=== PATIENT | male | born 1940 | race Caucasian/White ===

== ENCOUNTER → 2023-12-31 12:00 | Outpatient (REF) | payer OTHER, SELFPAY ==
[2023-12-31 08:46] LABS: Potassium 4.9 mmol/L (3.5-5.1)
== END ==
LOC: RESEARCH 12:00
PROVIDERS: REFERRING PHYSICIAN Internal Medicine Cardiovascular Disease
DX: I50.20 Unspecified systolic (congestive) heart failure (principal)
CPT/HCPCS: 36415; 82565; 84132

== ENCOUNTER 2024-07-28 09:52 | Inpatient (IN) | payer MEDICARE, OTHER, SELFPAY ==
[2024-07-26 19:00] VITALS: BP 112/69
[2024-07-26 19:02] VITALS: BP 112/69
--- NOTE | 2024-07-26 19:07 | ED.GENMED ---
History of Present Illness
General
Chief Complaint: Dizziness
Source: patient
Exam Limitations: none
Time Seen by Provider: 07/26/24 18:55
History of Present Illness
History of Present Illness:
This is a 84 year old male that comes in with c/o dizziness. States that this started at 4am today and it awoke him from sleep. States that he was dizzy all day and the room was spinning. States that he did fall this morning but he was dizzy first.
States that he did not hit his head or have any LOC. States that he went to see the PCP and was sent in to the ER for further evaluation. States that he is nauseated and had diarrhea this morning. Denies any fever, chills, chest pain, SOB, abd pain,
vomiting, headache, urinary burning.
Past History
Past History
ED Past Medical History: Arrthythmia (Atrial fib), GERD, HTN, Hypercholesterolemia, Psychiatric (Depression) and Other (Hiatal hernia. esophageal motility issues. Vertigo)
ED Past Surgical History: Cardiac (Ablation, Pacemaker) and Other (Cataracts, )
Social History
Tobacco: Non-smoker
Alcohol: None
Drug: None
Personal:
Living: with family
Employment: Retired
Family History
Family History: Hypertension
Review of Systems
Review of Systems
All Other Systems: ROS reviewed and negative except as documented in HPI and ROS
Constitutional: Reports no symptoms; Denies fever or chills
EENT: Reports no symptoms
Respiratory: Reports no symptoms; Denies cough or trouble breathing
Cardiac: Reports no symptoms; Denies chest pain
ABD/GI: Reports nausea and diarrhea; Denies abdominal pain or vomiting
: Reports no symptoms; Denies dysuria, frequency or urgency
Musculoskeletal: Reports no symptoms
Skin: Reports no symptoms
Neurological: Reports dizzy; Denies headache
Psychiatric: Reports no symptoms
Phy Exam
General Physical Exam
General Presentation: mild distress
General age: appears stated age
General Skin: warm and dry
General Habitus: elderly
General Mental: alert
General Hydration: dry mucous membranes
ENT Exam
ENT Exam: TM's normal, pharynx normal and neck supple
Eye Exam
Eye Exam: other (Patient keeping his eyes closed do to dizziness. )
Cardiovascular Exam
Cardiovascular Exam: no edema, normal peripheral pulses and pacemaker
Pulmonary Exam
Pulmonary Exam: lungs clear, no respiratory distress, no rales, chest non tender, no crackles, no rhonchi, no wheezing and no cough
Gastrointestinal Exam
Gastrointestinal Exam: normal bowel sounds, non tender, soft, no organomegaly, no pulsatile mass and non distended
Musculoskeletal Exam
Musculoskeletal Exam: full ROM and no edema
Skin Exam
Skin Exam: normal color, warm/dry, no rash and no petechia
Psychiatric Exam
Psychiatric Exam: normal mood/affect
Course
Orders/Labs/Results
Orders:
Orders
07/26/24 18:58
Electrocardiogram (*1) Urgent
Reason for Study: Vertigo / Dizzy
EKG- Treatment ONCE
07/26/24 19:05
CMP [Comprehensive Metabolic Panel] Urgent
Complete Blood Count/With Diff Urgent
Troponin I Urgent
07/26/24 19:06
CT Head W/o Iv Contrast Urgent
Comment:
Reason For Exam: dIZZINESS
0.9% Sodium Chloride 1000 ml [Nss] 1,000 ml IV BOLUS
Meclizine [Antivert] 50 mg PO NOW STA
07/26/24 19:09
Ondansetron Injectable [Zofran] 4 mg IV NOW STA
07/26/24 19:10
Prothrombin Time Urgent
Abnormal Lab Results
07/26/24
19:05
RBC 4.52 L 10^6/uL
(4.70-6.10)
Hct 38.1 L %
(39.0-52.0)
Abs Immat Gran (auto) 0.1 H 10^3/uL
(0-0.05)
Absolute Neuts (auto) 9.2 H 10^3/uL
(1.4-6.5)
Absolute Lymphs (auto) 0.6 L 10^3/uL
(1.2-3.4)
Neutrophils % 90.2 H %
(42.2-75.2)
Lymphocytes % 5.5 L %
(20.5-51.1)
Glucose 163 H mg/dl
(70-99)
07/26/24 19:05
07/26/24 19:05
Hyperglycemia. PT 14.6 with INR 1.11, Troponin 0.023
Vital Signs
Initial and Last Documented VS:
Initial Vital Signs
Pulse Resp
76 14
07/26/24 18:58 07/26/24 18:58
Last Documented Vital Signs
Temp Pulse Resp BP Pulse Ox
97.5 F 73 17 120/62 97
07/26/24 19:04 07/26/24 20:33 07/26/24 20:33 07/26/24 20:33 07/26/24 19:30
MDM/Problems Addressed
Differential Diagnosis Includes:
Intracranial bleed, Vertigo, Dehydration.
MDM/Problems Addressed:
This is a 84 year old male that comes in with c/o dizziness. States that this awoke him at 4am today and he has been dizzy all day. States that he thought this would pass. States that he went to see the PCP and they sent him in for further
evaluation.
Will check labs, CT head, give IV fluids and medicate for dizziness.
Spoke with Yi from [employer]. States that the pacer measurements are normal. Patient has had about 8 episodes of VT since July 22. States that there has been 8 episodes of atrial fib with the longest lasting 1 hour. States that this could
be longer but this is what the pacer is recording. Will send report
Back into see patient. Explained that his CT of the head is negative and his blood work is normal. Patient states that he is still dizzy with movement. Patient had fallen today at home earlier. Will admit. Hospitalist notified.
Chronic conditions affecting care:
Vertigo,
Acute Exacerbation and/or Progression of Chronic Illness:
Vertigo
*Radiology
Radiology exam reviewed: radiology read reviewed (CT head-NO CT evidence for acute intracranial hemorrhage or transcortical infarct. Mild bilateral periventricular white matter leukoaraiosis. Mild diffuse cerebral and cerebellar volume loss)
*Pulse Oximetry
Patient hypoxic: no
*EKG
Interpreted by ED Provider?: Yes
Heart Rate: 70
Rate: normal
Rhythm: PVC's and av sequential
[place]: left axis deviation
*Consumer Marketing Manager Interpretation
Rate: normal
Heart Rate: 87
Rhythm: av sequential
*Critical Care Note
Total Time (30-74mins, 75-104mins- exclusive of procedures): Not Applicable
ED Attending Note
-
Portions of this chart may have been created with voice recognition software.� Occasional wrong word or��sound alike� substitutions may have occurred due to the inherent limitations of voice recognition software.
Discharge Plan
Departure
Patient Disposition: Admit
Date of Disposition: 07/26/24
Time of Disposition: 20:42
Admit to: Med/Surg
Presentation/result/management discussed w/ accepting MD/DO: Hospitalist
Patient with high blood pressure during this ER visit?: No
Condition: Good
Covid-19: Not Applicable
Discharge Problem:
Dizziness
Instructions: Vertigo (a Type of Dizziness) (DC)
Prescriptions:
No Action
atorvastatin 20 MG tablet
20 mg PO QPM
pantoprazole 40 MG tablet,delayed release (DR/EC)
40 mg PO QPM
Eliquis 5 MG tablet
5 mg PO BID
nebivolol 10 mg Tablet
10 mg PO QPM
torsemide 20 mg Tablet
20 mg PO .Thursday
torsemide 10 mg Tablet
10 mg Daily
Jardiance 10 mg Tablet
10 mg PO DAILY
Referrals:
Garrett Levi MD [Family Provider] -
Interventions
Interventions:
*Risk Screen - Suicide Last Done: 07/26/24 19:00
*General Assessment Last Done: 07/26/24 19:00
*Neglect/Abuse Screening Last Done: 07/26/24 19:00
*ED COVID-19 Vaccine History Last Done: 07/26/24 19:00
ED- Neurological Assessment Last Done: 07/26/24 19:53
ED Swallowing Screen Last Done: 07/26/24 19:15
Discharge Date and Time
Print Language: RUSSIAN
[2024-07-26 19:16] LABS: % Basophils 0.1 % (0-2); % Eosinophils 0.1 % (0-6); % Immature Granulocytes 0.5 % (0-0.5); % Lymphocytes 5.5 % (20.5-51.1); % Monocytes 3.6 % (1.7-9.3); % Neutrophils 90.2 % (42.2-75.2); Absolute Immature Granulocytes 0.1 10^3/uL (0-0.05); Absolute Lymphocytes 0.6 10^3/uL (1.2-3.4); Absolute Monocytes 0.4 10^3/uL (0.1-0.6); Absolute Neutrophils 9.2 10^3/uL (1.4-6.5); Hematocrit 38.1 % (39.0-52.0); Hemoglobin 13.2 g/dL (13.0-18.0); Mean Corp Hgb Conc. 34.6 g/dL (33.0-37.0); Mean Corpuscular Hgb 29.2 pg (27.0-31.0); Mean Corpuscular Volume 84.3 fL (80.0-94.0); Mean Platelet Volume 9.7 fL (7.4-10.4); Nucleated Red Blood Cells % 0 % (-); Platelet Count 149 10^3/uL (130-400); Red Blood Cell Count 4.52 10^6/uL (4.70-6.10); Red Cell Dist. Width 13.4 % (11.5-14.5); White Blood Cell Count 10.2 10^3/uL (4.8-10.8)
[2024-07-26] MEDS: NSS 1000 IV (19:17)
[2024-07-26] MEDS: ANTIVERT 50 MG PO (19:17)
[2024-07-26] MEDS: ZOFRAN 4 MG IV (19:17)
[2024-07-26 19:25] LABS: INR 1.11; PT 14.6 Sec (11.4-14.6)
[2024-07-26 19:30] LABS: ALT (SGPT) 14 U/L (0-50); AST (SGOT) 24 U/L (17-59); Albumin 4.2 g/dl (3.5-5.0); Alkaline Phosphatase 92 U/L (38-126); Blood Urea Nitrogen 20 mg/dl (9-20); Calcium 9.2 mg/dl (8.4-10.2); Carbon Dioxide 24 mmol/L (22-30); Chloride 102 mmol/L (98-107); Glucose 163 mg/dl (70-99); Potassium 4.4 mmol/L (3.5-5.1); Sodium 141 mmol/L (135-145); Total Bilirubin 1.3 mg/dl (0.2-1.3); Total Protein 6.9 g/dl (6.3-8.2); eGFR > 60.00
[2024-07-26 19:38] LABS: Troponin I 0.023 ng/ml
[2024-07-26 20:33] VITALS: BP 120/62
--- NOTE | 2024-07-26 20:58 | HPS.HSE ---
Family Physician
<GRAHAM Duong - Last Filed: 07/26/24 21:36>
-
Family Physician: Garrett Levi
Chief Complaint
<GRAHAM Duong - Last Filed: 07/26/24 21:36>
-
dizziness
History of Present Illness
Patient is a 84-year-old male with past medical history significant for hypertension, permanent atrial fibrillation with pacer, ventricular tachycardia, chronic kidney disease, combined systolic and diastolic heart failure and GERD who presented to
[place] ED for evaluation of dizziness that woke him from his sleep early this morning. Patient reported that the 'room was spinning' all day and does not find anything that helps stop the spinning. He went to PCP who referred him to ED for
evaluation. Patient sustained a fall related to dizziness today, denies hitting his head and denies LOC. Patient reports some nausea. He denies any recent fever, chills, chest pain, shortness of breath, vomiting, constipation, diarrhea or urinary
symptoms.
Medical History
<GRAHAM Duong - Last Filed: 07/26/24 21:36>
Past Medical History
Past Medical History: Reports Other
Additional Past Medical History:
hypertension
permanent atrial fibrillation with pacer
ventricular tachycardia
chronic kidney disease
combined systolic and diastolic heart failure
GERD
Past Surgical History: Reports Other
Additional Past Surgical History:
pacemaker
hernia repair
pulmonary vein ablation
Family History
Family History: Not pertinent
Allergies / Home Medications
Allergies reflects when Allergies were last updated in [facility].
Home Medications with original date entered in [facility]
Allergy/Medication List:
Allergies
Allergy/AdvReac Type Severity Reaction Status Date / Time
amiodarone Allergy pulmonary Verified 05/24/23 01:09
toxicity,
near
syncope,
bradycardia
ragweed pollen Allergy sneezing Verified 05/24/23 01:09
Home Medications
atorvastatin 20 mg tablet 20 mg PO DAILY High cholesterol 06/18/19
pantoprazole 40 mg tablet,delayed release 40 mg PO DAILY Gastrointestinal issue 04/04/21
nebivolol 10 mg tablet 10 mg PO QPM 06/26/22
empagliflozin 10 mg tablet (Jardiance) 10 mg PO DAILY 05/22/23
torsemide 20 mg tablet 20 mg PO QPM 05/22/23
acetaminophen 500 mg tablet (Tylenol Extra Strength) 1,000 mg PO Q6HPRN PRN mild pain 07/26/24
apixaban 2.5 mg tablet (Eliquis) 2.5 mg PO BID 07/26/24
tamsulosin 0.4 mg capsule 0.4 mg PO DAILY 07/26/24
<Red Donahue MD - Last Filed: 07/27/24 06:25>
Social History
Tobacco: Non-smoker
Alcohol: None
Drug: None
Review of Systems
<GRAHAM Duong - Last Filed: 07/26/24 21:36>
-
History Source: Patient
Constitutional: Reports Sleep Disturbance (woken from sleep with dizziness)
EENT: Reports No Symptoms
Respiratory: Reports No Symptoms
Cardiac: Reports No Symptoms
Abdomen/GI: Reports Nausea
: Reports No Symptoms
Musculoskeletal: Reports No Symptoms
Skin: Reports No Symptoms
Neurological: Reports Dizzy
Endocrine: Reports No Symptoms
Hematologic/Lymphatic: Reports No Symptoms
Psych: Reports No Symptoms
Physical Exam
<GRAHAM Duong - Last Filed: 07/26/24 21:36>
Vital Signs
Vital Signs
Temp Pulse Resp BP Pulse Ox
97.5 F 73 17 120/62 97
07/26/24 19:04 07/26/24 20:33 07/26/24 20:33 07/26/24 20:33 07/26/24 19:30
Physical Exam
General: Well Developed, Well Nourished, No Apparent Distress and Conversant
HEENT: NormoCephalic, Moist mucous membranes, Atraumatic, PERRLA, [place] Conjunctivae, Nose Appears Normal and Ears Appear Normal
Respiratory: Clear and Non Labored Respirations
Cardiac: S1/S2 and Regular Rhythm; No Murmur, Rub or Gallop
GI: Soft, Non Tender, Non Distended and Normal Bowel Sounds; No Organomegaly
Rectal: Deferred by Provider
Genito-urinary: Deferred by me
Musculoskeletal: No Clubbing, No Cyanosis and No Edema
Skin: Warm, Dry and IV/Catheter Site; No Rash
Neuro: Awake, Alert and AO x 3
Hematologic/Lymphatic: No Lymphadenopathy
Psych: Calm and Intact Judgment/Insight
Laboratory Results
<GRAHAM Duong - Last Filed: 07/26/24 21:36>
-
07/26/24 19:05
07/26/24 19:05
Laboratory Results
PT 14.6 Sec (11.4-14.6) 07/26/24 19:10
INR 1.11 07/26/24 19:10
Total Bilirubin 1.3 mg/dl (0.2-1.3) 07/26/24 19:05
AST 24 U/L (17-59) 07/26/24 19:05
ALT 14 U/L (0-50) 07/26/24 19:05
Alkaline Phosphatase 92 U/L (38-126) 07/26/24 19:05
Troponin I 0.023 ng/ml 07/26/24 19:05
Data Reviewed
<GRAHAM Duong - Last Filed: 07/26/24 21:36>
-
CT Scan: Report Reviewed by me (head: 1. No CT evidence for acute intracranial hemorrhage or transcortical infarct. 2. Mild bilateral periventricular white matter leukoaraiosis. 3. Mild diffuse cerebral and cerebellar volume loss.)
Medical Tests (Nuc Med, Echo, EKG etc): Report Reviewed by me (EKG: AV dual-paced rhythm WITH FREQUENT ventricular-paced complexes)
Lab Data: Labs Reviewed by me
Impression/Plan
<GRAHAM Duong - Last Filed: 07/26/24 21:36>
-
IMPRESSION/PLAN:
#dizziness
#vertigo vs. bppv
- acute onset of dizziness that woke patient at 0400, described as having room spinning
- dizziness continued throughout day, with a fall, denies hitting his head
- Head CT: 1. No CT evidence for acute intracranial hemorrhage or transcortical infarct.
2. Mild bilateral periventricular white matter leukoaraiosis.
3. Mild diffuse cerebral and cerebellar volume loss.
- Admit to telemetry for observation
- Consult Neurology
- orthostatic VS
- PRN Meclizine
- PRN Zofran
#hypertension
- continue nebivolol and torsemide
#permanent atrial fibrillation with pacer
#ventricular tachycardia
- continue eliquis, nebivolol
#chronic kidney disease
- stable creat 1.1
#combined systolic and diastolic heart failure
- continue empagliflozin, nebivolol, torsemide
#GERD
- continue pantoprazole
Full Code
DVT Px: Eliquis
[2024-07-26 21:00] VITALS: BP 103/58
--- NOTE | 2024-07-26 21:19 | W.PN.UPDATE ---
Update Note
Progress Note Update
Patient seen in conjunction with the CLINICAL SCIENCE CONSULTANT. I agree with the findings on history and physical. I concur with the assessment and plan unless stated otherwise.
Briefly this is a 84-year-old male with past medical history significant for atrial fibrillation status post ablations in the past, is status post pacemaker and on anticoagulation, CHF with mildly reduced EF of around 50% on twice daily torsemide 20
mg who presents emergency department with acute episode of vertigo.
Patient arose at around 4 AM with spinning sensation. He has been having the spinning sensation ever since provide today. Is present with a laying in bed or moving but is obviously worse with any head movement. He denies a headache. He reports
some nausea on his labs been unable to tolerate p.o. since. He denies any vomiting. There has been no diarrhea. Due to the vertigo the patient did have a fall at home today. He did not strike his head. Patient denies any numbness tingling. He
denies any weakness. He denies any facial asymmetry, dysphagia, aphasia. Patient denies hearing loss, he denies tinnitus. He does have a prior episode of vertigo but does not have recurrent symptoms. Denies any recent changes in his medications.
Patient was seen by PMD today who recommended he go to the emergency department. Patient has not been having chest pain, palpitations or lightheadedness.
In the emergency department the patient was afebrile, hemodynamically stable with a blood pressure of 120/60 and a pulse of 70. While in saturation was normal room air. ECG showed atrial paced and ventricular paced rhythm with a rate of [address]-T wave changes. He had a CT of the head which shows no acute intracranial process. CBC was completely within normal limits electrolytes BUN/creatinine also normal. The pacemaker was interrogated. Patient did have normal readings with 8
episodes of atrial tachycardia/A-fib between 7 AM and 9 AM today which where reported to be within normal readings.
On my focused exam the patient had slight vertical nystagmus. Did not elicit horizontal nystagmus despite sensation of spinning. No focal neurological deficits. Chest was clear. Cardiovascular exam shows normal rhythm with normal S1-S2 no rubs
murmurs or gallops. There was no edema. Patient did not appear dehydrated.
1. Vertigo - Sudden onset vertigo that has been persistent. No tinnitus or hearing loss. No indication of lateralization. Possible BPPV vs vestibular neuritis versus central vertigo. CT head and neurological exam is so far reassuring. High risk
of fall and patient is on antigocoaglation.
- admit to tele/obs
- meclizine q 8 prn
- zofran prn
- orthostatic vs in am
- due to severity of symptoms,cannot check bravo hallpike to recommend possible lori for BPPV.
- hold off mri for now, neuro consult, will need cardiology if mri recommended.
2. AFIB - s/p ablation, a&v paced rhythm. No significant events on PPM
- continue apixaban and nebivolol
- s/p ablations, ppm, paced at around 70
3. CHF - euvolemic. No po today so may be dehydrated.
- check orthostatic
- if negative will continue torsemide 20 bid
- continue nebivolol and sgltII inhibition
4. BPH
- tamsulosin
DVT PPX - on apixaban
Code status - full code
[2024-07-26 22:00] VITALS: BP 105/58
[2024-07-26 22:45] VITALS: BP 131/71; BMI 22.6
[2024-07-26] MEDS: ELIQUIS 2.5 MG PO (23:03)
[2024-07-26 23:18] VITALS: BMI 22.6
--- NOTE | 2024-07-26 23:20 | PTCARENOTE ---
pt admitted to [id number] and pulled from stretcher to bed d/t vertigo. Pt aaox3, VSS, and no c/o pain. Pt placed on tele #21, AV paced. urinal given to pt and pt instructed to call and to not get oob without staff. Call mckeon within reach, and plan of
care ongoing.
[2024-07-26] MEDS: TIGAN 200 MG IM (23:46)
[2024-07-27] VITALS (10 sets, daily range): BP systolic 105–119; BP diastolic 55–65; PULSE 71–86; BMI 22.7
[2024-07-27] MEDS: ANTIVERT 25 MG PO ×3 (03:12→19:53)
[2024-07-27 06:38] LABS: Hematocrit 37.8 % (39.0-52.0); Hemoglobin 12.5 g/dL (13.0-18.0); Mean Corp Hgb Conc. 33.1 g/dL (33.0-37.0); Mean Corpuscular Hgb 29.3 pg (27.0-31.0); Mean Corpuscular Volume 88.5 fL (80.0-94.0); Mean Platelet Volume 9.9 fL (7.4-10.4); Platelet Count 149 10^3/uL (130-400); Red Blood Cell Count 4.27 10^6/uL (4.70-6.10); Red Cell Dist. Width 13.9 % (11.5-14.5); White Blood Cell Count 10.2 10^3/uL (4.8-10.8)
[2024-07-27 07:05] LABS: Blood Urea Nitrogen 21 mg/dl (9-20); Calcium 9.1 mg/dl (8.4-10.2); Carbon Dioxide 29 mmol/L (22-30); Chloride 105 mmol/L (98-107); Estimated Creatinine Clearance 44 ml/min; Glucose 88 mg/dl (70-99); Potassium 4.6 mmol/L (3.5-5.1); Sodium 144 mmol/L (135-145); eGFR > 60.00
[2024-07-27] MEDS: FLOMAX 0.4 MG PO (07:42)
[2024-07-27] MEDS: PROTONIX 40 MG PO (07:42)
[2024-07-27] MEDS: LIPITOR 20 MG PO (07:42)
[2024-07-27] MEDS: ELIQUIS 2.5 MG PO ×2 (07:42→19:53)
[2024-07-27] MEDS: FARXIGA 10 MG PO (07:47)
--- NOTE | 2024-07-27 10:11 | CON.NEURO4 ---
Addendum entered and electronically signed by Onel Agudelo MD 07/27/24 11:23:
Studies reviewed.
I have personally examined the patient. I reviewed and agree with the [employer] SUPERVISOR's Note.
My addenda:
Awake, alert, interactive. No acute distress.
Speech intact.
Follows 2-step requests w/o difficulty. No tremor.
Extra-ocular movements intact. HINTS testing was suggestive of a catch-up saccade with head turning to the right suggestive of a right-sided labyrinthine abnormality
Facial movements full and symmetric. Hearing intact to normal conversational volume.
Normal UE movements bilaterally.
Neck: full ROM.
Chest: no dyspnea
Heart: no JVD
Ext: (-) Clubbing, (-) Cyanosis, (-) Edema
IMPRESSIONS/RECOMMENDATIONS:
Abrupt onset of vertigo; possibly due to a right labyrinthine abnormality
Vestibular therapy
Goal of normotension
Goal of normoglycemia
Continue apixaban
Unable to obtain MRI of brain currently due to pacemaker
Meclizine as needed
D/W patient
All questions answered.
Will continue to follow as needed.
Original Note:
Documented by User: Claribel Nguyen NP 07/27/24 11:15
Consultation - Neurology 4
-
CONSULTING PHYSICIAN: Onel Agudelo MD
REFERRING PHYSICIAN: Hospitalists/GRAHAM Krishnan
DICTATED BY: GRAHAM Rodriguez
DATE/TIME OF REQUEST: 07/26/24
DATE/TIME OF CONSULTATION: 07/27/24
Reason for Consultation: Dizziness
History of Present Illness:
This is a 84-year-old right-handed male who has presented to the hospital on 07/26/24 with report of dizziness. Patient reports waking up from sleep yesterday morning (07/26/24) due to a spinning sensation, which he describes as the room spinning
around him. Any type of movement makes the spinning sensation worse. He notes having nausea and dry heaves. He has been able to ambulate short distances but did fall to the ground at one point, not hitting his head. He presented to his PCP for
evaluation, who referred him to the ER. CT head was obtained on arrival in the ER and is negative for any acute abnormalities. Patient reports feeling improved today but not back to baseline, turning his head left and right still brings on the
spinning. He endorses a slight headache today only, but per outpatient records he reported a headache yesterday at his PCP's office as well. He denies any vision changes, speech/swallowing difficulty, numbness, weakness, chest pain, palpitations,
and shortness of breath. He denies any tinnitus, ear fullness, changes in hearing, recent illness, or events like this in the past. He is taking Eliquis for Afib and denies missing any doses.
Past Medical History: Afib (Eliquis), HTN, HLD, CHF, hypertrophic cardiomyopathy, CKD, esophageal dysmotility, GERD, paraesophageal hernia, depression, anxiety, mild intermittent asthma, neuropathy
Surgical History: Pacemaker, cardioversion, pulmonary vein ablation, paraesophageal hernia repair, b/l cataract removal
Family History: Reviewed and noncontributory.
Social History: Denies tobacco, alcohol, and illicit drug use.
Allergies: Amiodarone, ragweed pollen.
Home Medications: See below.
Review of Symptoms:
Patient denies any fever, chest pain, shortness of breath, GI or symptoms.
�Per the HPI.�All systems are reviewed negative except above.
Physical Exam:
The patient is afebrile, abdomen is nondistended, breathing is unlabored, skin is warm and dry, no edema.
NIH Stroke Scale:
I performed the NIH stroke scale on the patient on 07/27/24 at 1015. The patient scored 0 points on the NIH stroke scale assessment, which were assigned as follows: See below.
Neurologic Examination:
The patient is awake, alert and oriented x 3. He is able to follow commands and answer questions appropriately. There is no aphasia or dysarthria. On cranial nerve assessment, pupils are 3 mm bilateral, round and reactive to light and
accommodation. Visual bustos are full. Extraocular movements are intact. No nystagmus. Facial sensations are intact and bilaterally symmetrical, there is no facial asymmetry. Hearing is intact bilaterally to finger rub. Tongue palate and uvula are
midline. Sternocleidomastoid strengths are full bilaterally. Motor strengths are 5/5 bilateral upper and lower extremities on medical research [place] scale. There is no drift or involuntary movement noted. Deep tendon reflexes are 2+ bilateral
upper and lower extremities and Babinski is absent bilaterally. There was no extinction noted on double simultaneous stimulation. Coordination is intact by finger to nose bilaterally. Head impulse testing +single extra movement with head turn to
the left.
Lab Results: See below.
Neuro Imaging:
1. CT Head 07/26/24: No CT evidence for acute intracranial hemorrhage or transcortical infarct. Mild bilateral periventricular white matter leukoaraiosis. Mild diffuse cerebral and cerebellar volume loss.
Differentials for the patient's presentation include:
1. Benign paroxysmal positional vertigo likely.
2. No recent illness or hearing changes to be supportive of vestibular neuritis.
3. Orthostasis possible but less likely given ongoing symptoms in lying position/exacerbation of symptoms with head turning.
4. Very low concern for central source of dizziness despite risk factors for stroke.
Patient has the following risk factors for their symptoms:
Recommendations:
-Physical therapy evaluations.
-Check orthostatic vital signs BID.
-Continue home Eliquis.
-Do not see a role for further neurological imaging at this point.
-Neurology will follow as-needed, please contact our service with any questions/concerns.
Discussed patient care with: Dr. Agudelo, the patient
Vital Signs and Labs
-
Vital Signs and Labs:
Vital Signs
Temp Pulse Resp BP Pulse Ox
99.4 F 71 17 112/58 97
07/27/24 07:25 07/27/24 07:25 07/27/24 07:25 07/27/24 07:25 07/27/24 07:25
Lab Results
07/27/24 06:20
07/27/24 06:20
PT 14.6 Sec (11.4-14.6) 07/26/24 19:10
INR 1.11 07/26/24 19:10
Sodium 144 mmol/L (135-145) 07/27/24 06:20
Potassium 4.6 mmol/L (3.5-5.1) 07/27/24 06:20
BUN 21 mg/dl (9-20) H 07/27/24 06:20
Glucose 88 mg/dl (70-99) 07/27/24 06:20
Calcium 9.1 mg/dl (8.4-10.2) 07/27/24 06:20
Medications
-
Medications:
Generic Name Dose Route Start Last Admin
Trade Name Freq PRN Reason Stop Dose Admin
Apixaban 2.5 mg 07/26/24 22:43 07/27/24 07:42
Apixaban (Eliquis) 2.5 Mg Tablet PO 08/23/24 22:42 2.5 mg
BID JANELLE Administration
Atorvastatin Calcium 20 mg 07/27/24 08:00 07/27/24 07:42
Atorvastatin (Lipitor) 20 Mg Tablet PO 08/24/24 07:59 20 mg
DAILY JANELLE Administration
Dapagliflozin 10 mg 07/27/24 08:00 07/27/24 07:47
Dapagliflozin (Farxiga) 10 Mg Tablet PO 08/24/24 07:59 10 mg
DAILY JANELLE Administration
Meclizine HCl 25 mg 07/27/24 09:25 07/27/24 10:28
Meclizine 25 Mg Tablet PO 08/24/24 09:24 25 mg
Q8HPRN PRN Administration
dizziness
Nebivolol 10 mg 07/27/24 18:00
Nebivolol Hcl 10 Mg Tablet PO 08/24/24 17:59
QPM JANELLE
Ondansetron HCl 4 mg 07/26/24 22:43
Ondansetron 4 Mg/2 Ml Vial IV 08/23/24 22:42
Q6HPRN PRN
NAUSEA/VOMITING
Pantoprazole Sodium 40 mg 07/27/24 08:00 07/27/24 07:42
Pantoprazole 40 Mg Delayed Release Tablet PO 08/24/24 07:59 40 mg
DAILY JANELLE Administration
Sodium Chloride 0 flush 07/26/24 22:00
Sodium Chloride 0.9% (Flush) Syringe IV 08/23/24 21:59
PER PROTOCOL JANELLE
Tamsulosin HCl 0.4 mg 07/27/24 08:00 07/27/24 07:42
Tamsulosin 0.4 Mg Capsule PO 08/24/24 07:59 0.4 mg
DAILY JANELLE Administration
Trimethobenzamide HCl 200 mg 07/26/24 23:29 07/26/24 23:46
Trimethobenzamide 200 Mg/2 Ml Vial IM 08/23/24 23:28 200 mg
Q6HPRN PRN Administration
nausea/vomiting
NIH Stroke Score
Subsequent NIH Scale
Date of Subsequent NIH Scale: 07/27/24
Time of Subsequent NIH Scale: 10:15
NIH Stroke Score
Level of Consciousness: 0 - Alert
LOC Questions: 0-Answers both correctly
LOC Commands: 0-Performs both correctly
Best Horizontal Gaze: 0-Normal
Visual Bustos: 0=Normal, no visual loss
Facial Palsy: 0=Normal, symmetrical
Motor - Right Arm: 0=No drift 10 seconds
Motor - Left Arm: 0=No drift 10 seconds
Motor - Right Le-No drift 5 seconds
Motor - Left Le-No drift 5 seconds
Limb Ataxia: 0-Absent
Sensation: 0-Normal
Best Language: 0-No aphasia
Dysarthria: 0-Normal
Extinction and Inattention: 0-No abnormality
Total Score:: 0

Documented by User: Onel Agudelo MD 07/27/24 11:19
NIH Stroke Score
NIH Stroke Score
Total Score:: 0
--- NOTE | 2024-07-27 10:41 | W.PN.HOSP.TC ---
Today's Communication/Plan
-
orthostatics vs pending
may need to consider IVF
Meclizine prn
PT/OT
hold diuretics for today
Assessment / Plan
Assessment / Plan
1. Vertigo - Sudden onset vertigo that has been persistent. No tinnitus or hearing loss. No indication of lateralization. Possible BPPV vs vestibular neuritis versus central vertigo.
- meclizine q 8 prn
- zofran prn
- orthostatic vs pending.
- hold off mri for now,
-anti-nausea prn
-encourage po intake.
-may need IVF if +orthos and no not eating much
-CT head No CT evidence for acute intracranial hemorrhage or transcortical infarct.
-neuro has been consulted
2. AFIB - s/p ablation, a&v paced rhythm. No significant events on PPM
- continue apixaban and nebivolol
- s/p ablations, ppm,
3. Chronic HFrEF .
- check orthostatic
- if negative will continue torsemide 20 starting tomm
- continue nebivolol and sgltII inhibition
4. BPH
- tamsulosin
DVT PPX - on apixaban
Code status - full code
Anticipated Discharge: Within 24 hours
Subjective/Interval History
-
Date of Service: July 27, 2024
states of dizziness while lying in bed
Objective Data
-
Labs:
Laboratory Results
07/27/24
06:20
WBC 10.2
Hgb 12.5 L
Hct 37.8 L
Plt Count 149
Sodium 144
Potassium 4.6
Chloride 105
Carbon Dioxide 29
BUN 21 H
Creatinine 1.2
Glucose 88
Calcium 9.1
Vital Signs:
Vital Signs
Temp Pulse Resp BP Pulse Ox
99.4 F 71 17 112/58 97
07/27/24 07:25 07/27/24 07:25 07/27/24 07:25 07/27/24 07:25 07/27/24 07:25
I&O
07/26/24 07/27/24 07/28/24
06:59 06:59 06:59
Intake Total 120 / 120
Output Total 100 / 100
Balance
Physical Exam
-
General: Well Developed and No Apparent Distress
HEENT: Normocephalic, Atraumatic and Moist Mucous Membranes
Respiratory: Clear to Auscultation
Cardiac: Regular Rhythm and S1/S2; Negative Murmur, Rub or Gallop
GI: Soft, Nontender, Nondistended and Normal Bowel Sounds; Negative Organomegaly
Rectal: Deferred by Provider
Musculoskeletal: No Clubbing, No Cyanosis and No Edema
Skin: Negative Rash
Neuro: Awake, Alert, Oriented, AO x 3, No Motor Deficits and Nonfocal/Grossly Intact
Psych: Calm
Data Reviewed
-
Total Time Spent with Patient (in minutes): 55
--- NOTE | 2024-07-27 13:49 | CM ---
Reviewed chart, met with patient who stated that he lives with his in a single two story home with a first floor set up. There are two steps to enter. Patient reported that he is independent with his ADLs, personal care, dressing and bathing.
He is able to do connie scratcher, cooking, cleaning and laundry. He denied any DME in his home. He drives and can get to his appointments and do all of his own shopping.
Patient never had VN services.
He has never been to a SNF in the past.
Patient has a prescription plan and uses, [facility] for all of his medications.
His PCP is, Garrett Levi.
Patient stated that he feels that he will be able to return home when medically cleared and is hopeful to start feeling better soon.
Plan: Case management will continue to follow and assist with discharge planning. Home when medically stable.
[2024-07-27] MEDS: NSS 1000 IV (15:06)
[2024-07-27] MEDS: BYSTOLIC 10 MG PO (18:13)
[2024-07-28] MEDS: TYLENOL 650 MG PO (02:54)
[2024-07-28 03:05] VITALS: BP 121/67
[2024-07-28 06:00] VITALS: BMI 22.6
[2024-07-28 07:31] VITALS: BP 136/81
[2024-07-28] MEDS: FARXIGA 10 MG PO (07:43)
[2024-07-28] MEDS: FLOMAX 0.4 MG PO (07:43)
[2024-07-28] MEDS: LIPITOR 20 MG PO (07:43)
[2024-07-28] MEDS: ANTIVERT 25 MG PO (07:43)
[2024-07-28] MEDS: PROTONIX 40 MG PO (07:43)
[2024-07-28] MEDS: ELIQUIS 2.5 MG PO (07:43)
--- NOTE | 2024-07-28 09:14 | W.PN.NEURO.1 ---
Today's Communication / Plan
-
Supportive care
Physical therapy
Neuro Assessment/Plan
Assessment
Acute onset of vertigo, markedly improved after 24 hours and rehabilitation
Plan
Supportive care
Physical therapy
Will follow as needed
Subjective/Objective
Subjective Data
Date of Service: July 28, 2024
Resolved dizziness
Objective Data
Vital Signs
Temp Pulse Resp BP Pulse Ox
36.5 C 79 16 136/81 96
07/28/24 07:31 07/28/24 07:31 07/28/24 07:31 07/28/24 07:31 07/28/24 07:31
Lab Results
07/27/24 06:20
07/27/24 06:20
PT 14.6 Sec (11.4-14.6) 07/26/24 19:10
INR 1.11 07/26/24 19:10
Sodium 144 mmol/L (135-145) 07/27/24 06:20
Potassium 4.6 mmol/L (3.5-5.1) 07/27/24 06:20
BUN 21 mg/dl (9-20) H 07/27/24 06:20
Glucose 88 mg/dl (70-99) 07/27/24 06:20
Calcium 9.1 mg/dl (8.4-10.2) 07/27/24 06:20
Patient Allergies
amiodarone Allergy (Verified 05/24/23 01:09)
pulmonary toxicity, near syncope, bradycardia
ragweed pollen Allergy (Verified 05/24/23 01:09)
sneezing
Review of Systems
-
History Source: Patient
All other systems: Reviewed and negative
Physical Exam
-
General: No Apparent Distress and Appears Stated Age
Eyes: Round OU, Solomon Conjunctivae and No Ptosis
HEENT: Anicteric and Moist Mucous Membranes
Neck: Full Range of Motion
Respiratory: No Dyspnea
Cardiac: No JVD
GI: Non-distended
Skin: Unremarkable
Extremities: No Clubbing, No Cyanosis and No Edema
Psych: Intact Judgement/Insight
Extended Neurological Exam
Mood & Affect: Mood Unremarkable and Affect Unremarkable
Attention Span & Concentration: Awake, Alert and Interactive
Memory: Unremarkable
Tremor: Hand Tremor Absent and Head Tremor Absent
Speech: Quality Unremarkable and Quantity Unremarkable
Cranial Nerve II: Left Eye: Pupillary Size Unremarkable and Visual Bustos Grossly Intact
Cranial Nerve II: Right Eye: Pupillary Size Unremarkable and Visual Bustos Grossly Intact
Cranial Nerves III, IV, : Extraocular Movement: Grossly Intact
Cranial Nerve VII: Facial Symmetry: Normal Facial Symmetry
Cranial Nerve VIII: Hearing: Unremarkable Hearing to Normal Conversational Volume
Cranial Nerve XI: Shoulder Shrug: Unremarkable
Muscle Strength, Overall: Spontaneously Moves
Muscle Bulk & Tone: Bulk Unremarkable and Tone Unremarkable
Touch Sensation: Unremarkable
Coordination: Reaches for Objects without Difficulty
Data Reviewed
-
Labs: Report Reviewed
Reviewed with: Patient
Old Records: Summarized
--- NOTE | 2024-07-28 10:07 | W.PN.HOSP.TC ---
Today's Communication/Plan
-
meclizine prn
dc mri
outpatient vestibular therapy
Plan for tentative dc later today
Assessment / Plan
Assessment / Plan
1. Dizziness likely 2/2 BPPV
- meclizine q 8 prn
- zofran prn
- orthostatic negaitve.
-anti-nausea prn
-encourage po intake.
-d/w with neuro-no further recs. Pt feels back to baseline. DC mri. Op vestibular therapy.
-CT head No CT evidence for acute intracranial hemorrhage or transcortical infarct.
-neuro has been consulted
2. AFIB - s/p ablation, a&v paced rhythm. No significant events on PPM
- continue apixaban and nebivolol
- s/p ablations, ppm,
3. Chronic HFrEF .
-restart diuretics
- continue nebivolol and sgltII inhibition
4. BPH
- tamsulosin
DVT PPX - on apixaban
Code status - full code
More than 30 minutes spent in discharge including
Final examination of the patient
Summarizing hospital stay
Instructions for continuing care to all relevant caregivers
Preparation of discharge records, prescriptions, and referral forms
Total time spent (in minutes): 49
Anticipated Discharge: Today
Subjective/Interval History
-
Date of Service: July 28, 2024
States feeling lot better
no dizziness
walking around
no nausea or vomiting
Objective Data
-
Vital Signs:
Vital Signs
Temp Pulse Resp BP Pulse Ox
97.7 F 79 16 136/81 96
07/28/24 07:31 07/28/24 07:31 07/28/24 07:31 07/28/24 07:31 07/28/24 07:31
I&O
07/27/24 07/28/24 07/29/24
06:59 06:59 06:59
Intake Total 120 / 120 220 / 220 480 / 480
Output Total 100 / 100 350 / 350 650 / 650
Balance 20 / 20 -130 / -130 -170 / -170
Physical Exam
-
General: Well Developed and No Apparent Distress
HEENT: Normocephalic, Atraumatic and Moist Mucous Membranes
Respiratory: Clear to Auscultation
Cardiac: Regular Rhythm and S1/S2; Negative Murmur, Rub or Gallop
GI: Soft, Nontender, Nondistended and Normal Bowel Sounds; Negative Organomegaly
Rectal: Deferred by Provider
Musculoskeletal: No Clubbing, No Cyanosis and No Edema
Skin: Negative Rash
Neuro: Awake, Alert, Oriented, AO x 3, No Motor Deficits and Nonfocal/Grossly Intact
Psych: Calm
--- NOTE | 2024-07-28 10:13 | W.DCSUMMARY ---
Discharge Summary
Discharge Data
Date of Admission: 07/26/24
Date of Discharge: 07/28/24
-
Pending Results: No
Hospital Course
84-year-old male with past medical history of atrial fibrillation status post ablation, chronic HFrEF, BPH who is presenting with complaint of acute onset of dizziness. Patient stated dizziness woke him up from sleep. Patient stated he tried to
get up from the bed and felt severely fatigued leading to decrease in appetite and persistent dizziness. Had some nausea but no vomiting. Denies any other focal weakness. Patient upon admission to hospital underwent CT head which showed no
evidence of acute intracranial hemorrhage or infarct. Patient orthostatic vital signs were not impressive. Patient state of severely decreased appetite for 48 hours prior to admission and thus receive IV fluid resuscitation. Patient was also
evaluated by neurology. Patient was started on meclizine. Patient with initially persistent symptoms and thus MRI of the brain was ordered. Patient was evaluated by physical therapy and underwent vestibular therapy. Patient symptomatology
improved and patient stated dizziness resolved and was ambulating in the room. Subsequently discussed with neurology recommended against MRI as patient dizziness resolved. Patient will need to continue taking meclizine and follow-up outpatient for
vestibular therapy. Patient agreed for plan and he was eager to get discharged home. Patient verbalized understanding upon discharge to follow-up outpatient.
Discharge Plan
-
Discharge Diagnosis/Procedures: Benign paroxysmal positional vertigo
Condition: Fair
Diet: 2 Gram Sodium and Restrict fluids to 48 oz
Activity: With assistance and As tolerated
Driving Restrictions: As prior to admission
Other Services: PT
Referrals:
Garrett Levi MD [Family Provider] - in less than 1 week
Prescriptions:
New
meclizine 25 mg Tablet
25 mg PO Q8HPRN PRN (Reason: dizziness) Qty: 20 0RF
Continued
atorvastatin 20 MG tablet
20 mg PO DAILY
pantoprazole 40 MG tablet,delayed release (DR/EC)
40 mg PO DAILY
nebivolol 10 mg Tablet
10 mg PO QPM
torsemide 20 mg Tablet
20 mg PO QPM
Jardiance 10 mg Tablet
10 mg PO DAILY
acetaminophen [Tylenol Extra Strength] 500 mg Tablet
1,000 mg PO Q6HPRN PRN (Reason: mild pain)
tamsulosin 0.4 mg Capsule
0.4 mg PO DAILY
Eliquis 2.5 mg Tablet
2.5 mg PO BID
Discharge Orders:
Discharge Patient (As Directed); Ordered 07/28/24
Ordered By: Fernandez Partida
Discharge Date and Time
Print Language: LITHUANIAN
[2024-07-28 11:30] VITALS: BP 127/70
== END 2024-07-28 12:57 | disposition home or self-care (01) | DRG 149 ==
LOC: 3 WEST ACU 09:52
PROVIDERS: Clinical Nurse Specialist Family Health; Nurse Practitioner Family; ADMITTING PHYSICIAN Internal Medicine; ATTENDING PHYSICIAN Hospitalist; CONSULT PHYSICIAN Psychiatry & Neurology Neurology; EMERGENCY PHYSICIAN Emergency Medicine; FAMILY PHYSICIAN Family Medicine
DX: H81.10 Benign paroxysmal vertigo, unspecified ear (principal); I48.21 Permanent atrial fibrillation; I13.0 Hypertensive heart and chronic kidney disease with heart failure and stage 1 through stage 4 chronic kidney disease, or unspecified chronic kidney disease; I50.22 Chronic systolic (congestive) heart failure; I42.2 Other hypertrophic cardiomyopathy; R11.0 Nausea; R19.7 Diarrhea, unspecified; E78.00 Pure hypercholesterolemia, unspecified; F32.A Depression, unspecified; F41.9 Anxiety disorder, unspecified; K22.4 Dyskinesia of esophagus; J45.20 Mild intermittent asthma, uncomplicated; N40.0 Benign prostatic hyperplasia without lower urinary tract symptoms; G62.9 Polyneuropathy, unspecified; N18.9 Chronic kidney disease, unspecified; K21.9 Gastro-esophageal reflux disease without esophagitis; K44.9 Diaphragmatic hernia without obstruction or gangrene; W01.0XXA Fall on same level from slipping, tripping and stumbling without subsequent striking against object, initial encounter; Y93.9 Activity, unspecified; Y92.009 Unspecified place in unspecified non-institutional (private) residence as the place of occurrence of the external cause; Z82.49 Family history of ischemic heart disease and other diseases of the circulatory system; Z95.0 Presence of cardiac pacemaker; Z79.01 Long term (current) use of anticoagulants; Z79.84 Long term (current) use of oral hypoglycemic drugs
CPT/HCPCS: 70450; 80048; 80053; 84484; 85025; 85027; 85610; 93005; 96361; 96374; 97112; 97163; 99285

== ENCOUNTER 2024-08-31 13:29 | Outpatient (RCR) | payer MEDICARE, OTHER, SELFPAY | END 2024-08-31 23:59 | disposition home or self-care (01) | LOC: RPT 13:29 | PROVIDERS: ATTENDING PHYSICIAN Family Medicine | DX: H81.10 Benign paroxysmal vertigo, unspecified ear (principal); Z73.6 Limitation of activities due to disability | CPT/HCPCS: 97112; 97163 ==

== ENCOUNTER → 2025-05-29 06:58 | Day surgery (SDC) | payer MEDICARE, OTHER, SELFPAY ==
[2025-05-29] MEDS: ELIQUIS 2.5 MG PO (08:32)
[2025-05-29 10:23] LABS: Blood Urea Nitrogen 23 mg/dl (9-20); Calcium 8.9 mg/dl (8.4-10.2); Carbon Dioxide 29 mmol/L (22-30); Chloride 108 mmol/L (98-107); Glucose 92 mg/dl (70-99); Potassium 4.2 mmol/L (3.5-5.1); Sodium 142 mmol/L (135-145); eGFR 50.18
--- NOTE | 2025-05-29 19:25 | ITS.CL.CARDI ---
Pediatric Oncologist - Cardioversion
Cardioversion
Procedure Report:
Date of Procedure: 05/29/25
Procedure: Cardioversion
Indication: Symptomatic atrial fibrillation
Performing Physician:Mile Dimas DO [facility]
Technique: The patient was brought to the holding area. Signed informed consent was obtained. Arrhythmia was confirmed by device. A time out was called and performed. The patient was anesthetized by the anesthesia service. Anticoagulation status
was reviewed and appropriate. R2 pads were placed anteriorly and posteriorly. A 200 J synchronized biphasic shock restored AV paced rhythm.. There were no complications.
Conclusion: Uncomplicated cardioversion from atrial fibrillation to sinus rhythm.
Recommendation: Routine post cardioversion care. Repeat lab work found creatinine 1.4. Eliquis will be increased to 5 mg twice daily.
== END ==
LOC: CATH 06:58
PROVIDERS: ATTENDING PHYSICIAN Internal Medicine Cardiovascular Disease; FAMILY PHYSICIAN Family Medicine; OTHER PHYSICIAN Internal Medicine Cardiovascular Disease
DX: I48.91 Unspecified atrial fibrillation (principal); I13.0 Hypertensive heart and chronic kidney disease with heart failure and stage 1 through stage 4 chronic kidney disease, or unspecified chronic kidney disease; I50.32 Chronic diastolic (congestive) heart failure; N18.32 Chronic kidney disease, stage 3b; I42.2 Other hypertrophic cardiomyopathy; I44.2 Atrioventricular block, complete; Z95.0 Presence of cardiac pacemaker; Z98.890 Other specified postprocedural states; I42.8 Other cardiomyopathies; I47.29 Other ventricular tachycardia; I34.0 Nonrheumatic mitral (valve) insufficiency; Q24.5 Malformation of coronary vessels
CPT/HCPCS: 80048; 92960; 93005

== ENCOUNTER → 2025-06-07 07:31 | Outpatient (REF) | payer MEDICARE, OTHER, SELFPAY | LOC: RCS 07:31 | PROVIDERS: ATTENDING PHYSICIAN Internal Medicine Cardiovascular Disease; FAMILY PHYSICIAN Family Medicine | DX: I50.32 Chronic diastolic (congestive) heart failure (principal) | CPT/HCPCS: 93306 ==

== ENCOUNTER → 2025-08-28 07:42 | Outpatient (REF) | payer MEDICARE, OTHER, SELFPAY ==
[2025-08-28 08:57] LABS: Hematocrit 43.2 % (39.0-52.0); Hemoglobin 14.6 g/dL (13.0-18.0); Mean Corp Hgb Conc. 33.8 g/dL (33.0-37.0); Mean Corpuscular Volume 87.4 fL (80.0-94.0); Nucleated Red Blood Cells % 0 % (-); Platelet Count 175 10^3/uL (130-400); Red Cell Dist. Width 13.2 % (11.5-14.5)
[2025-08-28 09:05] LABS: INR 1.12; PT 14.6 Sec (11.4-14.6)
[2025-08-28 09:40] LABS: ALT (SGPT) 10 U/L (0-50); AST (SGOT) 20 U/L (17-59); Albumin 4.5 g/dl (3.5-5.0); Alkaline Phosphatase 101 U/L (38-126); Blood Urea Nitrogen 23 mg/dl (9-20); Calcium 9.4 mg/dl (8.4-10.2); Carbon Dioxide 30 mmol/L (22-30); Chloride 104 mmol/L (98-107); Glucose 110 mg/dl (70-99); Magnesium 2.4 mg/dl (1.6-2.3); Sodium 140 mmol/L (135-145); Total Protein 7.5 g/dl (6.3-8.2); eGFR 42.49
[2025-08-28 09:46] LABS: Potassium 4.6 mmol/L (3.5-5.1)
== END ==
LOC: SDSPAT 07:42
PROVIDERS: ATTENDING PHYSICIAN Internal Medicine Cardiovascular Disease; FAMILY PHYSICIAN Family Medicine; OTHER PHYSICIAN Internal Medicine Cardiovascular Disease
DX: I48.0 Paroxysmal atrial fibrillation (principal)
CPT/HCPCS: 36415; 80053; 83735; 85025; 85610; 86850; 86900; 86901; 93005

== ENCOUNTER 2025-08-29 08:08 | Emergency (ER) | payer MEDICARE, OTHER, SELFPAY ==
[2025-08-29 08:22] VITALS: BP 135/73
--- NOTE | 2025-08-29 11:35 | ED.GENMED ---
History of Present Illness
General
Chief Complaint: Back Pain
Time Seen by Provider: 08/29/25 11:14
History of Present Illness
History of Present Illness:
FOCUSED PAST MEDICAL HISTORY
- A-fib on Eliquis, CHF
REVIEW OF OLD RECORDS
- Patient had cardioversion for A-fib May [address] Dimas
Note:
CHIEF COMPLAINT(S)
Lower back and hip pain.
HISTORY OF PRESENT ILLNESS
The patient is an 85-year-old male presenting with a chief complaint of lower back and hip pain, primarily localized to the left side. The pain began last Thursday and radiates down to the knee. The pain was initially severe, prompting the patient
to take Tylenol, and subsequently his administered Aleve, which provided minimal relief. This morning, while in the shower, the patient experienced significant difficulty bending down to wash his foot, resulting in severe pain requiring
assistance from his to dress. Currently, the pain is less severe than earlier, but the patient reports needing to be cautious with movements. Sleeping on the right side of the bed exacerbates the pain due to pressure on the affected area. No
pain is reported upon hip rotation, but the patient describes increased discomfort with certain movements. There is no associated abdominal pain. On examination, no significant pain is elicited with palpation in the suspected bursitis area.
SOCIAL DETERMINANTS AFFECTING HEALTH
The patient mentioned that during the pain episode, assistance bars in the shower prevented a fall, indicating household environmental adaptations for healthcare needs. However, these were not actively being used until the incident this morning.
REVIEW OF SYSTEMS
- Musculoskeletal: Pain in lower back and hip radiating to the knee, aggravated by movement and specific positions.
- Neurological: Strength in the lower extremities is good, with no notable deficits.
- Gastrointestinal: No abdominal pain reported.
PHYSICAL EXAM
General: Alert, no acute distress. Appears fairly comfortable.
Skin: Warm, dry.
Head: Normocephalic, atraumatic.
Neck: Supple, trachea midline.
Eye Ears, nose, mouth, and throat: Oral mucosa moist.
Cardiovascular: Normal peripheral perfusion, no edema. Strong pulse in the foot.
Respiratory: Respirations are non-labored.
Gastrointestinal: Abdomen nondistended.
Back: Normal alignment, no midline L-spine tenderness, some decreased active range of motion at the left hip due to pain, negative straight leg raise, no tenderness to suggest bursitis
Musculoskeletal: Normal range of motion, good strength in lower extremities. No pain with hip rotation.
Neurological: Alert and oriented to person, place, time, and situation. No focal neurological deficits observed.
Psychiatric: Cooperative, appropriate mood and affect.
PROBLEM LIST
- Acute musculoskeletal pain of the lower back and hip area.
PLAN
- Administer a shot of Toradol (Ketorolac) for pain relief.
- Obtain hip X-rays to evaluate for any arthritic changes or other abnormalities.
- Continue using Aleve for pain management as needed.
- Advise on cautious movement and use of safety bars in the shower for support to prevent falls.
DIFFERENTIAL DIAGNOSIS
The Differential Diagnosis includes, in no particular order and is not limited to:
1. Musculoskeletal strain or sprain
2. Bursitis
3. Osteoarthritis
4. Lumbar radiculopathy
5. Spinal stenosis
6. Hip osteoarthritis
7. Sciatica
8. Vertebral compression fracture
9. Sacroiliac joint dysfunction
10. Trochanteric bursitis
RADIOLOGY
- X-rays obtained which show degenerative changes
SUMMARY OF ENCOUNTER
The patient, an 85-year-old male, was seen in the emergency department due to acute lower back and hip pain that began last Thursday, primarily affecting the left side and radiating down to the knee. Initially, [id number] medications provided
minimal relief. During an incident in the shower, he experienced difficulty bending, exacerbating his pain, and necessitated assistance to dress. Upon evaluation, musculoskeletal pain was confirmed, with a notable lack of severe pain upon palpation
in the suspected bursitis area. The pain limited his movements and ability to rest on his affected side. Toradol (Ketorolac) was administered in the emergency department for pain relief, and hip X-rays were ordered to examine for any arthritic
changes.
DISPOSITION
Discharge.
ASSESSMENT
Acute musculoskeletal pain of the lower back and hip area, likely related to degenerative changes noted on X-ray.
EMERGENCY TREATMENTS ADMINISTERED
Toradol (Ketorolac) administered for pain relief.
PLAN
The patient is advised to follow up with an configuration specialist for further evaluation and management. Additional NSAIDs are held off due to the patients anticoagulation with apixaban (Eliquis). Cautious movement is recommended, particularly when
using the shower.
Short course of tramadol.
PATIENT EDUCATION AND COUNSELING
The patient was provided with contact information for orthopedic follow-up to further investigate degenerative changes and advised on modifying activities to manage pain.
FOLLOW-UP INSTRUCTIONS
Patient to follow up with an configuration specialist for further evaluation and management.
MEDICATION RECONCILIATION
Toradol was administered for immediate pain relief.
Apixaban (Eliquis) noted, affecting decision on NSAID use.
MEDICAL DECISION MAKING
-Number and Complexity of Problems Addressed: Chronic conditions affecting care with a differential diagnosis including musculoskeletal strain, bursitis, osteoarthritis, lumbar radiculopathy, and more.
-Data:
Category 1
- Clinical information obtained from the patient�s account of his pain experience and functional limitations.
Category 2
- My independent interpretation of hip X-rays indicates degenerative changes.
-Risk:
Consideration of Admission/Observation: Escalation of care including admission/observation was considered given the complexity and risk of the patients presenting complaint, exam findings, and underlying comorbidities. However, ultimately, I feel
the patient is safe for outpatient management with close follow-up. Reasoning: Work-up reassuring, does not reveal any acute life/organ threatening processes, patients symptoms well-controlled upon reevaluation, reexamination is reassuring, vitals
are stable, patient agreeable with discharge, reliable for follow-up.
DIAGNOSIS
- Low back pain, unspecified (M54.5)
- Hip pain (M25.55)
- Degenerative changes of the hip (M19.90)
UPDATE
- Degenerative changes on x-ray
- Short course of tramadol
- Give a one-time dose of Toradol (patient on Eliquis)
- To follow-up with Ortho
- Excellent strength on exam
Past History
Past History
ED Past Medical History: Arrthythmia (Atrial fib), GERD, HTN, Hypercholesterolemia, Psychiatric (Depression) and Other (Hiatal hernia. esophageal motility issues. Vertigo)
ED Past Surgical History: Cardiac (Ablation, Pacemaker) and Other (Cataracts, )
Social History
Tobacco: Non-smoker
Alcohol: None
Drug: None
Personal:
Living: with family
Employment: Retired
Family History
Family History: Hypertension
Phy Exam
Physical Exam
Physical Exam:
See HPI
Course
Orders/Labs/Results
Orders:
Orders
08/29/25 11:41
CR Hip - LT w/wo Pel 2-3 Vw* Urgent
Comment:
Reason For Exam: pain; no direct trauma
Include a pelvis x-ray?: Yes
CR Lumbar Spine Comp Min 4 Vw* Urgent
Comment:
Reason For Exam: pain near left hip / L SI
08/29/25 11:43
Ketorolac [Toradol] 30 mg IM NOW STA
Vital Signs
Initial and Last Documented VS:
Initial Vital Signs
Temp Pulse Resp BP Pulse Ox
36.5 C 73 16 135/73 98
08/29/25 08:22 08/29/25 08:22 08/29/25 08:22 08/29/25 08:22 08/29/25 08:22
Last Documented Vital Signs
Temp Pulse Resp BP Pulse Ox
36.5 C 73 16 135/73 98
08/29/25 08:22 08/29/25 08:22 08/29/25 08:22 08/29/25 08:22 08/29/25 11:36
*Pulse Oximetry
SaO2: 98
Oxygen Mode of Delivery: Room air
Patient hypoxic: no
*Critical Care Note
Total Time (30-74mins, 75-104mins- exclusive of procedures): Not Applicable
ED Attending Note
-
Portions of this chart may have been created with voice recognition software.� Occasional wrong word or��sound alike� substitutions may have occurred due to the inherent limitations of voice recognition software.
Discharge Plan
Departure
Patient Disposition: Home (Routine Discharge)
Date of Disposition: 08/29/25
Time of Disposition: 13:26
Patient with high blood pressure during this ER visit?: Yes
Discharge Problem:
Back pain
Instructions: Low Back Pain (DC), BLOOD PRESSURE
Prescriptions:
New
tramadol 50 mg tablet
50 mg PO BID PRN (Reason: Pain) Qty: 14 0RF
No Action
atorvastatin 20 MG tablet
20 mg PO QPM
pantoprazole 40 MG tablet,delayed release (DR/EC)
40 mg PO QPM
nebivolol 10 mg Tablet
10 mg PO QPM
Jardiance 10 mg Tablet
10 mg PO DAILY
torsemide 10 mg Tablet
10 mg PO DAILY
Eliquis 5 mg Tablet
5 mg PO BID
metoprolol succinate 25 mg Tablet Extended Release 24 Hr
12.5 mg PO DAILY
Referrals:
Julio Layne MD [Active, Orthopedics]
Garrett Levi MD [Family Provider, Family Practice]
Activity Restrictions/Additional Instructions:
Since you are on Eliquis it would be best to hold off on taking NSAIDs. However we did give you a one-time dose of Toradol today. I am sending a prescription for tramadol to your pharmacy. If you take the tramadol consider taking something like
MiraLAX to help with constipation. I have also given you the contact information for a local orthopedist that you could follow-up with, Dr. Layne.
Interventions
Interventions:
*General Assessment Last Done: 08/29/25 12:12
*Neglect/Abuse Screening Last Done: 08/29/25 08:24
[facility] Risk Assessment Tool Last Done: 08/29/25 12:13
*Risk Screen - Suicide (C-SSRS) Last Done: 08/29/25 08:24
ED-Musculoskeletal Assessment Last Done: 08/29/25 12:13
Discharge Date and Time
Print Language: SLOVAK
[2025-08-29] MEDS: TORADOL 30 MG IM (12:10)
[2025-08-29 12:12] VITALS: BMI 23.2
== END 2025-08-29 14:03 | disposition home or self-care (01) ==
LOC: EMR 08:08
PROVIDERS: EMERGENCY PHYSICIAN Emergency Medicine; FAMILY PHYSICIAN Family Medicine
DX: M54.50 Low back pain, unspecified (principal); M47.816 Spondylosis without myelopathy or radiculopathy, lumbar region; M16.0 Bilateral primary osteoarthritis of hip; I48.91 Unspecified atrial fibrillation; I11.0 Hypertensive heart disease with heart failure; I50.9 Heart failure, unspecified; E78.00 Pure hypercholesterolemia, unspecified; K21.9 Gastro-esophageal reflux disease without esophagitis; K44.9 Diaphragmatic hernia without obstruction or gangrene; Z79.01 Long term (current) use of anticoagulants; Z95.0 Presence of cardiac pacemaker; Z82.49 Family history of ischemic heart disease and other diseases of the circulatory system
CPT/HCPCS: 99284; 96372; 72110; 73502

== ENCOUNTER 2025-09-06 05:58 | Day surgery (SDC) | payer MEDICARE, OTHER, SELFPAY ==
[2025-08-28 09:00] VITALS: BMI 24.3
[2025-09-06] VITALS (12 sets, daily range): BP systolic 99–131; BP diastolic 57–76
[2025-09-06] MEDS: TYLENOL 1000 MG PO (07:29)
--- NOTE | 2025-09-06 08:06 | ITS.CL.ABL ---
Net Developer - Ablation
Ablation
Procedure Report:
ELECTROPHYSIOLOGIC STUDY AND POSSIBLE ABLATION
DATE: 09/06/25
Primary care physician: Dr. Garrett Levi
Primary manager market development: Dr. Yan Landon
INDICATION:
Symptomatic Atrial Fibrillation.
Persistent
Hypertrophic obstructive cardiomyopathy
HISTORY: See H and P.
Symptomatic AF, poorly controlled with attempted medical therapy
He had undergone prior ablation for atrial fibrillation in 2012 but has since recently recurred, symptomatic, intolerant of amiodarone and therefore underwent �PVI plus CTI flutter ablation in 2020.
He again recurred with symptomatic atrial [id number].
He most recently underwent electrical cardioversion on May 29, 2025.
Given his symptomatic recurrent atrial arrhythmias�he presents today for mapping and ablation
His medical history is complicated by his diagnosis of hypertrophic obstructive cardiomyopathy, PPM (dual-chamber Medtronic device placed May 28, 2022).
Echocardiogram June 07, 2025 finds LVEF 53% with no wall motion abnormality. There is stage III diastolic dysfunction and moderate LVH. Normal RV size and function. Mild to moderate aortic regurgitation and mild to moderate tricuspid
regurgitation.
HAS-BLED: 2
Age
Abnormal Renal Function (Cr = 1.6, GFR 42)
CHADSVASc: 3
CHF, NYHA Class 2, LVEF 55 (HFpEF, HOCM)
age
PRESENTING RHYTHM: AF
HISTORY: See H and P.
Symptomatic AF, poorly controlled with attempted medical therapy.
ANTICOAGULATION: Apixaban 5 mg twice daily
'TIME-OUT': called and confirmed.
SEDATION/ANESTHESIA: provided via the anesthesia department using general anesthesia.
PROCEDURE:
Ultrasound Guidance with real-time visualization of needle insertion and vessel patency performed by me for femoral venous Vascular Access.
Under real-time US guidance, the needle was advanced with negative pressure into the vein. The needle was seen entering the vessel lumen with a good return of dark red flow, the syringe was removed, non-pulsatile, dark red blood low was noted and
the wire was passed without difficulty, then the needle was removed. US confirmed the wire was in the vein, not going into an artery,
Images were taken and saved for the patient's permanent record. Imaging findings typical femoral venous anatomy. Direct visualization of needle puncture into the femoral vein was observed and recorded.
A decapolar CS catheter was placed within the CS for mapping and pacing.
The intracardiac ultrasound catheter was positioned in the RA for continuous intracardiac ultrasound imaging.
Heparin bolus and infusion to target ACT at 300 -350 seconds was administered. Transseptal puncture was performed. This entailed advancing a sheath with dilator into the superior vena cava and withdrawing both (monitoring intracardiac ultrasound,
fluoroscopy and tip pressure) with the tip oriented toward the atrial septum. The fossa ovalis was engaged (indicated by sudden displacement of the sheath tip as well as tenting of the fossa seen on intracardiac ultrasound).
Transseptal puncture was performed. Left atrial catheter position was confirmed by echocardiographic imaging, pressure monitoring (LA mean pressure 6 mm Hg) and fluoroscopy. The sheath was advanced over the dilator and positioned in the left
atrium.
The Sphere 9 multipolar mapping/ablation Sphere-9 catheter was positioned through the transseptal sheath for high density mapping.
Geometry and voltage mapping was performed using the Flowgear mapping system for three-dimensional electroanatomical mapping.
Catheter positioning was guided and confirmed using both I.C.E. and fluoroscopy.
High density electroanatomical three-dimensional mapping demonstrated four PVs: LSPV, LIPV, RSPV, RIPV.
Ablation strategy included PVI as well as mapping for extra PV contributors to atrial fibrillation which would also be targeted if present.
There is reconnection at the left superior pulmonary vein towards its septal and superior quadrants. There is also reconnection at the right superior pulmonary vein towards its septal and superior quadrant. Pulmonary vein electrical isolation was
achieved with delivery of pulsed electric field energy via the sphere 9 catheter.
After accomplishing pulmonary venous isolation, mapping identified additional areas likely to be extra PV contributors to atrial fibrillation. These areas demonstrated patchy low voltage as well as complex fractionated electrograms. These areas can
be sites for the formation of rotors which can drive and maintain atrial fibrillation. These areas are known to be significant contributors to initiation and perpetuation of atrial fibrillation.
Additional energy applications/additional ablation sets targeted extra PV contributors to atrial fibrillation.
Mapping finds that there is not complete posterior wall isolation from his prior ablation.
Targets for additional PFA ablation included:
LA posterior wall targeted with pulsed electric field energy isolating the posterior wall of the left atrium
After ablation of the posterior wall, additional targets were addressed:
The ridge of tissue between the left atrial appendage and the left sided pulmonary veins (Ligament of Candido )
These areas were ablated using pulsed electric field energy eliminating the extra PV contributors to atrial fibrillation.
Post ablation mapping finds entrance and exit block at each of the pulmonary veins, the LA posterior wall and at the additional lines at the Ligament of Marshal rendering the sites no longer able to contribute to atrial fibrillation.
Additionally he has known typical right atrial flutter and previously underwent CTI ablation. There is concern he may have had reactive occurrence of atrial flutter.
The CTI line was carefully mapped and there appears to be a gap at the inferior edge towards the inferior vena cava at the CTI at approximately 6:00 in the TOMAS 30 degree projection.
Delivery of pulsed electric field energy using the sphere 9 catheter included giving several lesions resulting in complete conduction block, bidirectional block at the CTI defined by differential pacing.
Programmed electrostimulation including burst atrial pacing as well the delivery of decremental extrastimuli down to atrial effective refractory period and no sustained arrhythmias could be induced.
I.C.E. :
Pre-Ablation Post-Ablation
LVEF: 50 % 50 %
WMA: none none
Pericardial effusion: none none
LA Pressure (mmHg) 6 11
COMPLICATIONS:
None
SUMMARY:
- Mapping and ablation to isolate the PVs resulting in electrical isolation of the pulmonary veins
- Additional AF ablation sets X 2 after PVI (LA posterior wall, Inf/ligament of Candido) resulting in elimination of the targeted extra PV contributors to atrial fibrillation.
- Mapping and ablation of second tachycardia (SVT in the form of typical right atrial flutter) rendering it non-inducible with programmed electrical stimulation
- 3-D Electroanatomical Mapping
- Intracardiac Ultrasound
- Ultrasound guidance for vascular access
Post ablation, I discussed today's findings and results with the patient's , Renée.
RECOMMENDATIONS:
- Observe in monitored bed.
- Maintain oral anticoagulation.
- Office visit with GRAHAM Chavarria December 07, 2025
- Continue cardiovascular care with Dr. Yan Lnadon.
Copy to:
Primary care physician: Dr. Garrett Levi
Primary manager market development: Dr. Yan Landon
[2025-09-06 09:01] LABS: ACT-LR - POC 314 Seconds (116-155)
[2025-09-06 09:27] LABS: ACT-LR - POC 360 Seconds (116-155)
--- NOTE | 2025-09-06 11:46 | W.PN.UPDATE ---
Update Note
Progress Note Update
Pt seen post PFA. Right groin with vascade closure, no ht/bleeding, non tender. OOB ambulating. Post EKG AVPaced 70, as before, no acute changes. Resume eliquis tonight. Followup at [facility] as scheduled. Home today if groin site/tele remain stable.
== END 2025-09-06 12:45 | disposition home or self-care (01) ==
LOC: CATH 05:58
PROVIDERS: ATTENDING PHYSICIAN Internal Medicine Cardiovascular Disease; FAMILY PHYSICIAN Family Medicine; OTHER PHYSICIAN Internal Medicine Cardiovascular Disease
DX: I48.19 Other persistent atrial fibrillation (principal); I48.4 Atypical atrial flutter; I08.3 Combined rheumatic disorders of mitral, aortic and tricuspid valves; E78.00 Pure hypercholesterolemia, unspecified; I13.0 Hypertensive heart and chronic kidney disease with heart failure and stage 1 through stage 4 chronic kidney disease, or unspecified chronic kidney disease; I25.10 Atherosclerotic heart disease of native coronary artery without angina pectoris; I42.1 Obstructive hypertrophic cardiomyopathy; I47.10 Supraventricular tachycardia, unspecified; I48.3 Typical atrial flutter; I44.2 Atrioventricular block, complete; Q24.5 Malformation of coronary vessels; I47.20 Ventricular tachycardia, unspecified; J45.909 Unspecified asthma, uncomplicated; H81.10 Benign paroxysmal vertigo, unspecified ear; N40.0 Benign prostatic hyperplasia without lower urinary tract symptoms; K21.9 Gastro-esophageal reflux disease without esophagitis; K44.9 Diaphragmatic hernia without obstruction or gangrene; F41.9 Anxiety disorder, unspecified; F32.A Depression, unspecified; Z79.899 Other long term (current) drug therapy; Z79.01 Long term (current) use of anticoagulants; Z79.84 Long term (current) use of oral hypoglycemic drugs
CPT/HCPCS: C1733; C1894; C1769; C1766; C1730; C1892; C1759; 85347; 93005; 93655; 93656; 93657; C1760